=== PATIENT | female | born 1960 | race American Indian/Alaskan Native ===

== ENCOUNTER 2017-09-05 08:48 | Outpatient (CLI) | payer MEDICARE, OTHER ==
--- NOTE | 2017-09-05 10:07 | XRay Report ---
Lumbar spine: Back pain. AP and lateral standing 3 views demonstrates good alignment in the AP and lateral projections. Anterior spondylosis is present at multiple levels predominantly from L3-L5 but also in the lower thoracic spine with bridging of the anterior margins of T10-11 and T11-12. Mild interspace narrowing is noted at L4-5. The vertebral height is generally well preserved and the bones relatively well-mineralized. Apophyseal joint narrowing is suspected at L4-5 and L5-S1 with bony proliferative changes bilaterally. When compared to a prior examination in September 2010 the above findings do not appear to have significantly changed. Of incidental note however is interval placement of an IVC filter. Impressions: Multilevel degenerative bone changes with mild L4-5 disc narrowing.
== END 2017-09-05 08:49 | disposition home or self-care (01) ==
LOC: SPVIMAG 08:48
PROVIDERS: ATTEND Orthopaedic Surgery Sports Medicine
DX: M47.896 Other spondylosis, lumbar region (principal); M47.894 Other spondylosis, thoracic region; M25.511 Pain in right shoulder
CPT/HCPCS: 72100

== ENCOUNTER 2017-09-30 15:00 | Emergency (ER) | payer MEDICARE, OTHER ==
--- NOTE | 2017-09-30 15:35 | Emergency Department Report ---
Chief Complaint: Chest Pain Stated Complaint: CHEST PAIN - HPI History of Present Illness: This 57-year-old female that presents with chest pain 4 days. Patient also reports headache and pressure to her right wrist 4 days. Patient did state that she is anxious about her diagnosed with stage IV cancer. Patient describes chest pain as throbbing level of 8 out of 10. Patient stated this get slight short of breath only during walking but denies any shortness of breath now. Denies any numbness, tingling, fever, chills, nausea, vomiting, stiff neck. - Exam Vital Signs: Vital Signs 09/30/17 15:21 Temperature 97.8 F Pulse Rate 84 Respiratory 22 Rate Blood Pressure 163/70 O2 Sat by Pulse 100 Oximetry Physical Exam: GENERAL: The patient is a well-developed, well-nourished female in no apparent distress. Patient is alert and acting appropriately for age. Alert and oriented 3, no apparent distress, normal gait, atraumatic. LUNGS: Clear to auscultation. Non labor breathing. No intercostal retractions. Symmetrical with respiration, no wheezing, no rales, or crackles. HEART: Midsternal chest wall tenderness upon palpation. Regular rate and rhythm without murmur, rubs or gallops. No reproducible. S1, S2 present, regular rate and rhythm without murmur, no rubs, no gallops. EXTREMITIES: Without any cyanosis, clubbing, rash, lesions or edema. Peripheral pulses intact. Capillary refill less than 2 seconds. Full range of motion bilaterally. MSE screening note: Focused history and physical exam performed. Due to findings the following was ordered: 1- This initial assessment/diagnostic orders/clinical plan/ treatment(s) is/are subject to change based on pt's health status, clinical progression and re- assessment by fellow clinical providers in the ED. Further treatment and workup at subsequent clinical provers discretion. Patient/guardians urged not to elope from ED as their condition may be serious if not clinically assessed and managed. 2-EKG, chest x-ray 3-CBC, cMP, troponin, cardiac CK, UA, BNP ED Disposition for MSE Condition: Stable
[2017-09-30 16:06] LABS: Hematocrit 41.4 % (30.3-42.9); Hemoglobin 13.5 gm/dl (10.1-14.3); Mean Corpuscular HGB Conc 33 % (30-34); Mean Corpuscular Hemoglobin 28 pg (28-32); Mean Corpuscular Volume 85 fl (79-97); Platelet Count 257 K/mm3 (140-440); Red Blood Count 4.87 M/mm3 (3.65-5.03); Red Cell Distribution Width 15.5 % (13.2-15.2)
[2017-09-30 16:28] LABS: Creatine Kinase MB 1.7 ng/mL (0.0-4.0)
[2017-09-30 16:31] LABS: Alanine Aminotransferase 19 units/L (7-56); Albumin 4.8 g/dL (3.9-5); Albumin/Globulin Ratio 1.2 %; Alkaline Phosphatase 77 units/L (35-129); Anion Gap 20 mmol/L; BUN/Creatinine Ratio 9; Blood Urea Nitrogen 6 mg/dL (7-17); Calcium 9.9 mg/dL (8.4-10.2); Carbon Dioxide 28 mmol/L (22-30); Chloride 95.3 mmol/L (98-107); Creatine Kinase 131 units/L (30-135); Glucose 111 mg/dL (65-100); Potassium 3.2 mmol/L (3.6-5.0); Sodium 140 mmol/L (137-145); Total Protein 8.7 g/dL (6.3-8.2)
[2017-09-30 16:43] LABS: Basophils % (Manual) 0 % (0.0-1.8); Blastocytes % (Manual) 0 %; Eosinophils % (Manual) 0 % (0.0-4.3)
[2017-09-30 16:44] LABS: Anisocytosis 1+; Diff Status Complete; Spherocytes Rare
--- NOTE | 2017-09-30 18:09 | XRay Report ---
FINAL REPORT PROCEDURE: XR CHEST ROUTINE 2V TECHNIQUE: PA and lateral chest radiographs were obtained. CPT 06754 HISTORY: Chest pain. COMPARISON: No prior studies are available for comparison. FINDINGS: Heart: The heart size is top-normal. Mediastinum/Vessels: Aortic tortuosity. Lungs/Pleural space: Normal. Bony thorax: Multilevel osteophytes and disc space narrowing. Other: IMPRESSION: No radiographic evidence of acute cardiopulmonary disease. Heart size top-normal. Aortic tortuosity.
[2017-09-30] MEDS ORDERED: ATIVAN PO ONE (23:12)
--- NOTE | 2017-09-30 23:14 | Emergency Department Report ---
ED General Adult HPI - General Chief complaint: Chest Pain Stated complaint: CHEST PAIN Time Seen by Provider: 09/30/17 22:37 Source: patient Mode of arrival: Ambulatory Limitations: No Limitations - History of Present Illness Initial comments: Patient is a 57-year-old female past medical history of multiple myeloma, pulmonary embolism in remission who presents with chest pain. Patient states that chest pain is located in the middle of her chest that occurred well she was anxious and worried about her has stage IV cancer. Patient states chest pain has been going on for the last 4 days it is a 7 out of 10 nothing makes it better or worse. 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 Patient denies having any leg swelling or hemoptysis. Severity scale (0 -10): 7 - Related Data Allergies Allergy/AdvReac Type Severity Reaction Status Date / Time No Known Allergies Allergy Unverified 09/30/17 15:21 ED Review of Systems ROS: Stated complaint: CHEST PAIN Other details as noted in HPI Constitutional: denies: chills, fever Eyes: denies: eye pain, eye discharge, vision change ENT: denies: ear pain, throat pain Respiratory: shortness of breath. denies: cough, wheezing Cardiovascular: chest pain. denies: palpitations Endocrine: no symptoms reported Gastrointestinal: denies: abdominal pain, nausea, diarrhea Genitourinary: denies: urgency, dysuria, discharge Musculoskeletal: denies: back pain, joint swelling, arthralgia Skin: denies: rash, lesions Neurological: denies: headache, weakness, paresthesias Psychiatric: denies: anxiety, depression Hematological/Lymphatic: denies: easy bleeding, easy bruising ED Past Medical Hx - Past Medical History Previous Medical History?: Yes Hx Deep Vein Thrombosis: Yes (Lower ext, PE) Hx of Cancer: Yes (multiple myeloma) Additional medical history: Bone marrow transplant 2011 - Surgical History Past Surgical History?: Yes Hx Breast Surgery: Yes (Left breast lumpectomy) Additional Surgical History: Right hip with a pau, Left knee surgery, Lonnie foot surgery, [place] filter, partial hysterectomy - Social History Smoking Status: Former Smoker Substance Use Type: Prescribed ED Physical Exam - General Limitations: No Limitations General appearance: alert, in no apparent distress - Head Head exam: Present: atraumatic, normocephalic - Eye Eye exam: Present: normal appearance - ENT ENT exam: Present: mucous membranes moist - Neck Neck exam: Present: normal inspection - Respiratory Respiratory exam: Present: normal lung sounds bilaterally, chest wall tenderness. Absent: respiratory distress - Cardiovascular Cardiovascular Exam: Present: regular rate, normal rhythm. Absent: systolic murmur, diastolic murmur, rubs, gallop - GI/Abdominal GI/Abdominal exam: Present: soft, normal bowel sounds - Extremities Exam Extremities exam: Present: normal inspection - Back Exam Back exam: Present: normal inspection - Neurological Exam Neurological exam: Present: alert, oriented X3 - Psychiatric Psychiatric exam: Present: normal affect, normal mood - Skin Skin exam: Present: warm, dry, intact, normal color. Absent: rash ED Course Vital Signs 09/30/17 09/30/17 09/30/17 15:20 15:21 21:04 Temperature 97.8 F 99.1 F Pulse Rate 84 76 Respiratory 22 18 Rate Blood Pressure 163/70 163/70 157/80 Blood Pressure [Left] O2 Sat by Pulse 100 97 Oximetry 09/30/17 09/30/17 09/30/17 22:29 22:30 22:35 Temperature 98 F Pulse Rate 72 65 59 L Respiratory 31 H 28 H Rate Blood Pressure Blood Pressure 137/74 [Left] O2 Sat by Pulse 98 98 Oximetry 09/30/17 22:36 Temperature Pulse Rate Respiratory 28 H Rate Blood Pressure Blood Pressure [Left] O2 Sat by Pulse 98 Oximetry ED Medical Decision Making - Lab Data Result diagrams: 09/30/17 15:47 09/30/17 15:47 Lab Results 09/30/17 09/30/17 09/30/17 Range/Units 15:47 15:47 15:47 WBC 11.0 (4.5-11.0) K/mm3 RBC 4.87 (3.65-5.03) M/mm3 Hgb 13.5 (10.1-14.3) gm/dl Hct 41.4 (30.3-42.9) % MCV 85 (79-97) fl MCH 28 (28-32) pg MCHC 33 (30-34) % RDW 15.5 H (13.2-15.2) % Plt Count 257 (140-440) K/mm3 Lymph # [employer] Expert Add Manual Diff Complete Total Counted 100 Seg Neuts % (Manual) 49.0 (40.0-70.0) % Band Neutrophils % 0 % Lymphocytes % (Manual) 47.0 H (13.4-35.0) % Reactive Lymphs % (Man) 0 % Monocytes % (Manual) 4.0 (0.0-7.3) % Eosinophils % (Manual) 0 (0.0-4.3) % Basophils % (Manual) 0 (0.0-1.8) % Metamyelocytes % 0 % Myelocytes % 0 % Promyelocytes % 0 % Blast Cells % 0 % Nucleated RBC % Not Reportable Seg Neutrophils # Man 5.4 (1.8-7.7) K/mm3 Band Neutrophils # 0.0 K/mm3 Lymphocytes # (Manual) 5.2 (1.2-5.4) K/mm3 Abs React Lymphs (Man) 0.0 K/mm3 Monocytes # (Manual) 0.4 (0.0-0.8) K/mm3 Eosinophils # (Manual) 0.0 (0.0-0.4) K/mm3 Basophils # (Manual) 0.0 (0.0-0.1) K/mm3 Metamyelocytes # 0.0 K/mm3 Myelocytes # 0.0 K/mm3 Promyelocytes # 0.0 K/mm3 Blast Cells # 0.0 K/mm3 WBC Morphology Not Reportable Hypersegmented Neuts Not Reportable Hyposegmented Neuts Not Reportable Hypogranular Neuts Not Reportable Smudge Cells Not Reportable Toxic Granulation Not Reportable Toxic Vacuolation Not Reportable Dohle Bodies Not Reportable Pelger-Huet Anomaly Not Reportable Anna Rods Not Reportable Platelet Estimate Appears normal Clumped Platelets Not Reportable Plt Clumps, EDTA Not Reportable Large Platelets Not Reportable Giant Platelets Not Reportable Platelet Satelliting Not Reportable Plt Morphology Comment Not Reportable RBC Morphology Not Reportable Dimorphic RBCs Not Reportable Polychromasia Not Reportable Hypochromasia Not Reportable Poikilocytosis Not Reportable Anisocytosis 1+ Microcytosis Not Reportable Macrocytosis Not Reportable Spherocytes Rare Pappenheimer Bodies Not Reportable Sickle Cells Not Reportable Target Cells Not Reportable Tear Drop Cells Not Reportable Ovalocytes Not Reportable Helmet Cells Not Reportable [place] Bodies Not Reportable Woodacre Rings Not Reportable Danelle Cells Not Reportable Bite Cells Not Reportable Crenated Cell Not Reportable Elliptocytes Not Reportable Acanthocytes (Spur) Not Reportable Rouleaux Not Reportable Hemoglobin C Crystals Not Reportable Schistocytes Not Reportable Malaria parasites Not Reportable Jt Bodies Not Reportable Hem Pathologist Commnt No D-Dimer < 135.00 (0-234) ng/mlDDU Sodium 140 (137-145) mmol/L Potassium 3.2 L (3.6-5.0) mmol/L Chloride 95.3 L (98-107) mmol/L Carbon Dioxide 28 (22-30) mmol/L Anion Gap 20 mmol/L BUN 6 L (7-17) mg/dL Creatinine 0.7 (0.7-1.2) mg/dL Estimated GFR > 60 ml/min BUN/Creatinine Ratio 9 % Glucose 111 H (65-100) mg/dL Calcium 9.9 (8.4-10.2) mg/dL Total Bilirubin 0.50 (0.1-1.2) mg/dL AST 24 (5-40) units/L ALT 19 (7-56) units/L Alkaline Phosphatase 77 (35-129) units/L Total Creatine Kinase 131 (30-135) units/L CK-MB (CK-2) 1.7 (0.0-4.0) ng/mL CK-MB (CK-2) Rel Index 1.2 (0-4) Troponin T < 0.010 (0.00-0.029) ng/mL NT-Pro-B Natriuret Pep 26.92 (0-900) pg/mL Total Protein 8.7 H (6.3-8.2) g/dL Albumin 4.8 (3.9-5) g/dL Albumin/Globulin Ratio 1.2 % 09/30/17 Range/Units 23:21 WBC (4.5-11.0) K/mm3 RBC (3.65-5.03) M/mm3 Hgb (10.1-14.3) gm/dl Hct (30.3-42.9) % MCV (79-97) fl MCH (28-32) pg MCHC (30-34) % RDW (13.2-15.2) % Plt Count (140-440) K/mm3 Lymph # Add Manual Diff Total Counted Seg Neuts % (Manual) (40.0-70.0) % Band Neutrophils % % Lymphocytes % (Manual) (13.4-35.0) % Reactive Lymphs % (Man) % Monocytes % (Manual) (0.0-7.3) % Eosinophils % (Manual) (0.0-4.3) % Basophils % (Manual) (0.0-1.8) % Metamyelocytes % % Myelocytes % % Promyelocytes % % Blast Cells % % Nucleated RBC % Seg Neutrophils # Man (1.8-7.7) K/mm3 Band Neutrophils # K/mm3 Lymphocytes # (Manual) (1.2-5.4) K/mm3 Abs React Lymphs (Man) K/mm3 Monocytes # (Manual) (0.0-0.8) K/mm3 Eosinophils # (Manual) (0.0-0.4) K/mm3 Basophils # (Manual) (0.0-0.1) K/mm3 Metamyelocytes # K/mm3 Myelocytes # K/mm3 Promyelocytes # K/mm3 Blast Cells # K/mm3 WBC Morphology Hypersegmented Neuts Hyposegmented Neuts Hypogranular Neuts Smudge Cells Toxic Granulation Toxic Vacuolation Dohle Bodies Pelger-Huet Anomaly Anna Rods Platelet Estimate Clumped Platelets Plt Clumps, EDTA Large Platelets Giant Platelets Platelet Satelliting Plt Morphology Comment RBC Morphology Dimorphic RBCs Polychromasia Hypochromasia Poikilocytosis Anisocytosis Microcytosis Macrocytosis Spherocytes Pappenheimer Bodies Sickle Cells Target Cells Tear Drop Cells Ovalocytes Helmet Cells [place] Bodies [place] Rings Danelle Cells Bite Cells Crenated Cell Elliptocytes Acanthocytes (Spur) Rouleaux Hemoglobin C Crystals Schistocytes Malaria parasites Jt Bodies Hem Pathologist Commnt D-Dimer (0-234) ng/mlDDU Sodium (137-145) mmol/L Potassium (3.6-5.0) mmol/L Chloride (98-107) mmol/L Carbon Dioxide (22-30) mmol/L Anion Gap mmol/L BUN (7-17) mg/dL Creatinine (0.7-1.2) mg/dL Estimated GFR ml/min BUN/Creatinine Ratio % Glucose (65-100) mg/dL Calcium (8.4-10.2) mg/dL Total Bilirubin (0.1-1.2) mg/dL AST (5-40) units/L ALT (7-56) units/L Alkaline Phosphatase (35-129) units/L Total Creatine Kinase (30-135) units/L CK-MB (CK-2) (0.0-4.0) ng/mL CK-MB (CK-2) Rel Index (0-4) Troponin T < 0.010 (0.00-0.029) ng/mL NT-Pro-B Natriuret Pep (0-900) pg/mL Total Protein (6.3-8.2) g/dL Albumin (3.9-5) g/dL Albumin/Globulin Ratio % - EKG Data -: EKG Interpreted by Me - EKG Data 10/01/17 00:22 EKG shows sinus rhythm LVH normal axis no ST segment elevation and no T-wave inversion. - Radiology Data Radiology results: report reviewed, image reviewed Chest x-ray: Shows no evidence of any acute cardiopulmonary disease - Medical Decision Making Chief medical diagnosis: Anxiety Differential medical diagnosis: Non-STEMI, pneumothorax, GERD, hypo-kalemia, hyponatremia, costochondritis I will get EKG, troponin, CBC, CMP, oral Ativan, chest x-ray Patient's lab work and radiological studies are unremarkable patient does not want any oral anti-pain medication. Patient states that chest pain has resolved with oral Ativan. Given patient's history and incidence of chest pain patient is low risk for ACS event. I'll have patient follow up with her assembler clip on sunglasses. Discussed outpatient and patient agrees with plan. Critical care attestation.: If time is entered above; I have spent that time in minutes in the direct care of this critically ill patient, excluding procedure time. ED Disposition Clinical Impression: Anxiety Chest pain Qualifiers: Chest pain type: unspecified Qualified Code(s): R07.9 - Chest pain, unspecified Disposition: - TO HOME OR SELFCARE Is pt being admited?: No Does the pt Need Aspirin: No Condition: Stable Instructions: Chest Pain (ED), Anxiety (ED) Referrals: BAILEY GARNER MD [Primary Care Provider] - 3-5 Days
[2017-10-01 00:56] VITALS: BP 126/71
== END 2017-10-01 01:01 | disposition home or self-care (01) ==
LOC: ED 15:00
DX: R07.89 Other chest pain (principal); F41.9 Anxiety disorder, unspecified; I82.409 Acute embolism and thrombosis of unspecified deep veins of unspecified lower extremity; Z87.891 Personal history of nicotine dependence
CPT/HCPCS: 36415; 71020; 80053; 82550; 82553; 83880; 84484; 85007; 85025; 85379; 93005; 93010; 99284

== ENCOUNTER 2017-10-31 09:08 | Outpatient (CLI) | payer MEDICARE, OTHER ==
--- NOTE | 2017-10-31 10:17 | Cat Scan Report ---
CT CHEST WITHOUT CONTRAST INDICATION: Follow up pulmonary nodule. COMPARISON: 04/10/2012 and 01/19/2012 chest [address]s. FINDINGS: Noncontrast chest CT demonstrates improved early congestive changes/cardiomegaly and bibasilar atelectasis. No effusions. Borderline pulmonary arterial hypertension. No aortic aneurysm with few aortic arch atherosclerotic ossifications. Assessment of the great vessels and for detecting subtle lymphadenopathy limited due to lack of IV contrast. Patent central airway. Few small bilateral axillary lymph nodes again noted measuring up to 2.3 x 1.1 cm on the left, axial image 40, series 3. Normal thyroid. Few tiny right lung subpleural nodular densities/scarring again noted as subcentimeter in the right middle lobe anteriorly, axial images 106-107, series 3 as also a noncalcified 5 mm inferior right lower lobe nodule anteriorly, axial image 82. No new suspicious lung nodules or masses. Nonspecific distal esophageal wall prominence/thickening, not excluded for gastroesophageal reflux and/or hiatal hernia, amongst others. Approximately 3.4 cm right upper to mid renal cortical cyst, previously 1.8 cm on 09/06/[address] Approximately 4 mm dependent gallstone is new. Few splenic flexure/proximal descending colon diverticuli. 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 Approximately 7 mm T9 vertebral body hypodensity posterosuperiorly on the left also again seen. Approximately 7 mm L1 hypodensity inferiorly also partially imaged. CONCLUSION: 1. No acute chest CT abnormality on this unenhanced exam with small, subcentimeter benign right lung noncalcified nodular densities, stable since 2011, as described. No further CT followup suggested for these lesions, until otherwise clinically indicated. 2. Various other incidental findings as possible pulmonary arterial hypertension, hiatal hernia/gastroesophageal reflux, small gallstone, right renal cyst and thoracic spine findings, amongst others, as above. Thank you for the opportunity to participate in this patient's care.
== END 2017-10-31 09:09 | disposition home or self-care (01) ==
LOC: CT 09:08
PROVIDERS: ATTEND Internal Medicine Critical Care Medicine
DX: J98.4 Other disorders of lung (principal); R91.1 Solitary pulmonary nodule; N28.1 Cyst of kidney, acquired; K80.20 Calculus of gallbladder without cholecystitis without obstruction; I70.0 Atherosclerosis of aorta; M53.84 Other specified dorsopathies, thoracic region; Z87.891 Personal history of nicotine dependence
CPT/HCPCS: 71250

== ENCOUNTER 2017-11-21 13:21 | Outpatient (CLI) | payer MEDICARE, OTHER | END 2017-11-21 13:22 | disposition home or self-care (01) | LOC: SPVWC 13:21 → VAS 13:21 → SPVWC 13:22 | PROVIDERS: ATTEND Internal Medicine Hematology & Oncology | DX: M79.661 Pain in right lower leg (principal); M79.662 Pain in left lower leg; M79.89 Other specified soft tissue disorders | CPT/HCPCS: 93970 ==